=== PATIENT | female | born 1990 | race Two or more races ===

== ENCOUNTER → 2020-03-18 | Outpatient (CLI) | payer MEDICAID ==
[~2020-03-18] MED LIST: BUSP15TA PO; LAMO100T5 PO; PREG150C PO; SERT100T PO; TAMS-11 PO; TIZA6CAP PO
== END | disposition home or self-care (01) ==
LOC: STAR 14:17
PROVIDERS: ATTEND Internal Medicine Gastroenterology
DX: Z20.822 Contact with and (suspected) exposure to COVID-19 (principal)
CPT/HCPCS: 87635

== ENCOUNTER 2020-03-24 11:38 | Day surgery (SDC) | payer MEDICAID ==
[~2020-03-24] VITALS: Ht 170.2 cm; Wt 144.7 kg
[2020-03-24] MEDS ORDERED: CHLORHEXIDINE 15 ML UDC ONE (11:56)
[2020-03-24] MEDS ORDERED: LACTATED RINGERS 1,000 ML IV SCH (12:00)
[2020-03-24] MEDS ORDERED: CHLORHEXIDINE 15 ML UDC MM ONE (12:00)
[2020-03-24] MEDS ORDERED: LORazepam 2 MG/ML, 1ML IVPush PRN (15:00)
[2020-03-24] MEDS ORDERED: ACETAMINOPHEN 325 MG TABLET PO PRN (15:00)
[2020-03-24] MEDS ORDERED: PROMETHAZINE 25 MG SUPP PR PRN (15:00)
[2020-03-24] MEDS ORDERED: FENTANYL PF 100 MCG/2ML IV PRN ×2 (15:00→16:00)
[2020-03-24] MEDS ORDERED: ONDANSETRON 2MG/ML, 2ML IVPush PRN (15:00)
[2020-03-24] MEDS ORDERED: OXYcodone 5 MG/5 ML ORAL.SOL UDC PO PRN (15:00)
[2020-03-24] MEDS ORDERED: PROMETHAZINE 25 MG/ML, 1ML IVPush PRN (15:00)
[2020-03-24] MEDS ORDERED: FENTANYL PF 100 MCG/2ML ONE (15:32)
[2020-03-24] MEDS ORDERED: KETOROLAC 30 MG/1 ML ONE (15:33)
[2020-03-24] MEDS ORDERED: KETOROLAC 30 MG/1 ML IM PRN (16:00)
[2020-03-24] MEDS ORDERED: KETOROLAC 30 MG/1 ML IV PRN (16:00)
[2020-03-24] MEDS ORDERED: TIZANIDINE 4MG TABLET PO ONE (16:00)
[2020-03-24] MEDS ORDERED: PROPOFOL 10 MG/ML, 20ML ONE (16:01)
== END 2020-03-24 17:10 | disposition home or self-care (01) ==
LOC: OUT 11:38
PROVIDERS: ATTEND Internal Medicine Gastroenterology
DX: K92.1 Melena (principal); R15.9 Full incontinence of feces; K62.6 Ulcer of anus and rectum; G83.4 Cauda equina syndrome; G82.20 Paraplegia, unspecified; J45.909 Unspecified asthma, uncomplicated; E66.9 Obesity, unspecified; Z68.43 Body mass index [BMI] 50.0-59.9, adult; Z79.899 Other long term (current) drug therapy; Z88.8 Allergy status to other drugs, medicaments and biological substances
CPT/HCPCS: 36415; 45380; 84703; 88305; J1885; J2704; J3010; J7120

== ENCOUNTER 2020-04-26 17:27 | Emergency (ER) | payer MEDICAID ==
[~2020-04-26] VITALS: Ht 170.2 cm; Wt 145.0 kg
[2020-04-26] MEDS ORDERED: SODIUM CHLORIDE FLUSH 10ML SYR IVF ONE (18:00)
[2020-04-26] MEDS ORDERED: SODIUM CHLORIDE 0.9% 1,000ML IVBOLUS ONE (18:00)
[2020-04-26] MEDS ORDERED: HYDROmorphone 1 MG/ML, 1ML INJ IV ONE (18:00)
[2020-04-26] MEDS ORDERED: ONDANSETRON 2MG/ML, 2ML IVPush ONE (18:00)
[2020-04-26] MEDS ORDERED: HYDROmorphone 1 MG/ML, 1ML INJ ONE ×2 (18:21→20:31)
[2020-04-26] MEDS ORDERED: ONDANSETRON 2MG/ML, 2ML ONE (18:21)
--- NOTE | 2020-04-26 18:33 | NUR ---
PT BIB EMS FOR ABDOMINAL PAIN, GALLBLADDER REMOVED AND NEW COLOSTOMY 1 WEEK AGO IN [facility]. PT DC FROM [facility] TODAY AND PAIN IS UNCONTROLLED, STABBING SENSATION. HX OF CUADA EQUINA, SENSATION IN LEGS DECREASED, INCREASED WEAKNESS, DROP FOOT. PIV, IVF, MEDICATED PER ORDERS.
[2020-04-26 18:38] LABS: BASOPHILS % (AUTO) 1 % (0-1); EOSINOPHILS % (AUTO) 3 % (1-7); LYMPHOCYTES % (AUTO) 12 % (22-44); MEAN CORPUSCULAR HGB CONC 31.2 g/dL (32.4-35.8); MEAN PLATELET VOLUME 8.1 fL (7.4-10.4); MONOCYTES % (AUTO) 5 % (2-9); NEUTROPHILS % (AUTO) 79 % (42-75); PLATELET COUNT 257 x10^3/uL (130-400)
[2020-04-26 18:41] LABS: MD NO
[2020-04-26 18:52] LABS: ALBUMIN 2.9 g/dL (3.4-5.0); ANION GAP 5 mmol/L (5-15); CALCIUM 8.1 mg/dL (8.5-10.1); CHLORIDE 107 mmol/L (98-107)
[2020-04-26] MEDS ORDERED: LORazepam 2 MG/ML, 1ML ONE (18:53)
--- NOTE | 2020-04-26 18:57 | NUR ---
PT MIRTHA, STATES SHE IS UNCONTROLLED PAIN. MEDICATED FOR PAIN PRIOR. MEDICATED W ATIVAN PER ORDERS.
--- NOTE | 2020-04-26 18:58 | NUR ---
REPORT TO HANNA
[2020-04-26 18:59] LABS: ALANINE AMINOTRANSFERASE 38 U/L (12-78); ALKALINE PHOSPHATASE 65 U/L (45-117); BILIRUBIN,TOTAL 0.2 mg/dL (0.2-1.0); CREATININE 1.01 mg/dL (0.55-1.02); TOTAL PROTEIN 6.7 g/dL (6.4-8.2)
[2020-04-26] MEDS ORDERED: LORazepam 2 MG/ML, 1ML IVPush ONE (19:00)
--- NOTE | 2020-04-26 19:06 | NUR ---
PATIENT IN BED REPORTING "EXCRUCIATING PAIN. SOMEONE NEEDS TO COME LOOK AT THIS. I FEEL LIKE IM BEING STABBED". PATIENT RESTLESS IN BED. REPORTING OFF NURSE, ARPITA FLOWER, ADMINISTERED IV ATIVAN PRIOR TO LEAVING. NO OBVIOUS ABNORMALITIES TO RIGHT ABDOMEN WHERE PATIENT COMPLAINING OF THIS PAIN. LLQ OSTOMY PUTTING OUT GAS AND SOFT STOOL. NO OBVIOUS LEAKING FROM OSTOMY SITE/BAG/APPLIANCE. CALL QUINN IN REACH. SAFETY MAINTAINED. WILL CONTINUE TO MONITOR. NO SENSATION TO LEFT LEG AND HAS FOOT DROP. SHE STATES THIS IS BASELINE FROM HER EQUADA NICKY (SPELLING). SENSATION TO RLE IS WNL.
[2020-04-26] MEDS ORDERED: OMNIPAQUE 350 MG/ML, 150 ML BOTTLE ONE (19:38)
--- NOTE | 2020-04-26 19:42 | NUR ---
PATIENT RESTING IN BED SUPINE IN NAD. CALL QUINN IN REACH. SAFETY MAINTAINED. WILL CONTINUE TO MONITOR. USES CALL QUINN FREQUENTLY REQUESTING PAIN MEDICATIONS
--- NOTE | 2020-04-26 20:10 | NUR ---
PATIENT PROVIDED STRAIGHT CATH TO SELF STRAIGHT CATH SHE DOES THIS CHORNICALLY AT HOME. PATIENT HAD OWN SUPPLIES AND OPTED TO USE THOSE. PATIENT OPTED TO DO THIS WHILE LAYING SUPINE IN BED. NO COMPLICATIONS. CALL QUINN IN REACH. SAFETY MAINTAINED. WILL CONTINUE TO MONITOR.
[2020-04-26] MEDS ORDERED: HYDROmorphone 2 MG/ML, 1ML IVPush ONE (20:30)
--- NOTE | 2020-04-26 21:15 | NUR ---
SINCE 2029, AFTER DC ALREADY UP AND DR. MAHONEY TO PATIENT'S BEDSIDE TO INFORM HER OF CT RESULTS, PATIENT STATES THAT SHE DID NOT REALLY LISTEN TO DR. MAHONEY WHILE HE WAS REVIEWING RESULTS OF CT WITH HER. DR. MAHONEY NOTIFIED AND IN TO SEE PATIENT AND REVIEW CT RESULTS AGAIN. PATIENT IN NAD AT THIS TIME. SHE DID SUCCESSFULLY STRAIGHT CATH HERSELF. WHEN I EXPLAINED AGAIN THAT PATIENT WAS UP FOR DISCHARGE PATIENT STATES "I DONT SEE HOW THIS IS OK. I HAVE SO MUCH PAIN I CANT MOVE". SHE STATES SHE LIVES AT HOME WITH MOTHER AND HER MOTHER CAN HELP HER BUT WONT AND THAT HER MOTHER HAS TO WORK. SHE ALSO REPORTS THAT PATIENT WAS DISCHARGED FROM [facility] TODAY AND WAS IN TOO MUCH PAIN TO CHANGE HER OSTOMY BY HERSELF. VS HAVE REMAINED STABLE ON RA. SHE REQUESTED A LAST DOSE OF PAIN MEDICATION WHICH WAS ADMINISTERED THROUGH HER IV. PATIENT CONTINUED TO REFUSE SITTING UP AND PREPARING HERSELF FOR DISCHARGE. SHE STATES "WELL I HAVE TO CHANGE MY OSTOMY BEFORE I LEAVE". PATIENT HAS SUPPLIED IN HER BACKPACK. PATIENT ASSISTED WITH SITTING UP AND BEGINS TO YELL OUT AND THEN STATES "I CANT DO THIS" AND LAYS BACK DOWN IN BED AND REFUSES TO TRY AGAIN. DR. MAHONEY NOTIFIED AND MULTIMEDIA TECHNICIAN. SECURITY CALLED FOR ASSISTANCE. RN TO BEDSIDE AGAIN AND NOTIFIED PATIENT OF WHAT DR. MAHONEY STATED TO HER A FEW MINUTES AGO AND THAT THERE WAS NOTHING ACUTE OR EMERGENT AT THIS TIME AND SHE WOULD BE DISCHARGED HOME AND TO FOLLOW UP WITH SURGEON TEAM TOMORROW FOR PAIN CONTROL. SHE REPORTS HAVING PERCOCETS AT HOME "BUT THEY DONT DO ANYTHING". SECURITY TO ROOM AND PATIENT SAT UP IN BED WITHOUT NEEDING ASSISTANCE AND WAS ABLE TO DRESS HER SELF. SHE WAS ABLE TO STAND WELL WITHOUT ASSISTANCE. WC AT BEDSIDE. PATIENT NOT LISTENING DURING DISCHARGE INSTRUCTION REVIEW SHE CALLED HER MOTHER WHILE I STARTED REVIEWING THIS. PAPERWORK PLACED IN HER BAG. ALL HER HOME SUPPLIES ALSO PLACE IN HER BAG. IV REMOVED PER DC PROTOCOL. ALL PERSONAL BELONGINGS WITH PATIENT. STEADY GAIT WHILE STANDING. PATIENT DOES HAVE A BASELINE DEFICIT AND DOES NEED A WALKER DUE TO LEFT FOOT DROP. THIS IS REASON FOR WC.
[2020-04-26 21:22] VITALS: BP 105/78
== END 2020-04-26 21:25 | disposition home or self-care (01) ==
LOC: ED 21:10
DX: K91.871 Postprocedural hematoma of a digestive system organ or structure following other procedure (principal); R10.84 Generalized abdominal pain; Z90.49 Acquired absence of other specified parts of digestive tract
CPT/HCPCS: 36415; 74177; 80053; 83690; 84703; 85025; 96361; 96374; 96375; 96376; 99285; J1170; J2060; J2405; J7030; Q9967